=== PATIENT | male | born 1955 | race Hispanic/Latino ===

== ENCOUNTER → 2017-11-20 | Outpatient (CLI) | payer OTHER ==
[~2017-11-20] MED LIST: ATOR40TA71 PO; DONE10TA43 PO; FLUO-126 PO; GLIP10TA9 PO; HYDR25TA PO; INSU100V12 SQ; LISI-617 PO; METF10004 PO; TRAZ150T79 PO
== END | disposition home or self-care (01) ==
LOC: RAH 13:55
PROVIDERS: ATTEND Nurse Practitioner Family
DX: M47.895 Other spondylosis, thoracolumbar region (principal); G31.9 Degenerative disease of nervous system, unspecified; R42 Dizziness and giddiness; Z91.81 History of falling
CPT/HCPCS: 70450; 71046; 71100

== ENCOUNTER → 2021-08-10 | Outpatient (CLI) | payer OTHER ==
[~2021-08-10] MED LIST changes: -FLUO-126 PO; +FLUO20CA36 PO; -LISI-617 PO; +LISI5TAB21 PO; +METF-446 PO; -METF10004 PO
== END | disposition home or self-care (01) ==
LOC: SHCH 14:32
PROVIDERS: ATTEND Internal Medicine Cardiovascular Disease
DX: I65.22 Occlusion and stenosis of left carotid artery (principal)
CPT/HCPCS: 93880

== ENCOUNTER → 2022-03-26 | Outpatient (CLI) | payer OTHER | END | disposition home or self-care (01) | LOC: SHCH 07:56 | PROVIDERS: ATTEND Internal Medicine Cardiovascular Disease | DX: I08.2 Rheumatic disorders of both aortic and tricuspid valves (principal) | CPT/HCPCS: 93306 ==

== ENCOUNTER → 2023-09-06 | Outpatient (CLI) | payer OTHER | END | disposition home or self-care (01) | LOC: SHCH 07:31 | PROVIDERS: ATTEND Internal Medicine Cardiovascular Disease | DX: I10 Essential (primary) hypertension (principal); R01.1 Cardiac murmur, unspecified | CPT/HCPCS: 93306 ==